=== PATIENT | female | born 2000 | race Caucasian/White ===

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

== ENCOUNTER 2022-05-25 16:07 | Emergency (ER) | payer OTHER ==
[2022-05-25 16:29] VITALS: BP 113/74; PULSE 66; RESP 16; TEMP 98.1
--- NOTE | 2022-05-25 16:40 | ED ---
General Adult HPI - General Chief complaint: Skin/Abscess/Foreign Body Stated complaint: Rash Time Seen by Provider: 05/25/22 16:30 Source: patient, RN notes reviewed, old records reviewed Mode of arrival: ambulatory Limitations: no limitations - History of Present Illness Initial comments: 22-year-old female with rash to her right forearm, left upper back, left hip. Patient's mother had requested evaluation for possible ringworm. Patient denies any associated symptoms. She is otherwise healthy. - Related Data Previous Rx's Medication Instructions Recorded Permethrin 5% Cream [Elimite] 1 applic TOPICAL ONCE #1 cream..g. 02/27/16 Amoxicillin 500 mg PO Q8H 7 Days #21 capsule 01/31/20 Clotrimazole Cream [Lotrimin Cream] 1 applic TOPICAL BID #15 gm 05/25/22 Allergies Allergy/AdvReac Type Severity Reaction Status Date / Time shellfish derived [Shellfish] Allergy Unknown Verified 05/25/22 16:28 Review of Systems ROS Statement: Those systems with pertinent positive or pertinent negative responses have been documented in the HPI. ROS Other: All systems not noted in ROS Statement are negative. Past Medical History Past Medical History: No Reported History Additional Past Medical History / Comment(s): SOCIAL ANXIETY History of Any Multi-Drug Resistant Organisms: None Reported Past Surgical History: No Surgical Hx Reported Past Psychological History: No Psychological Hx Reported Smoking Status: Never smoker Past Alcohol Use History: None Reported Past Drug Use History: None Reported General Exam Limitations: no limitations General appearance: alert, in no apparent distress Head exam: Present: atraumatic, normocephalic ENT exam: Present: normal exam Neck exam: Present: normal inspection. Absent: tenderness Respiratory exam: Present: normal lung sounds bilaterally. Absent: respiratory distress, wheezes Cardiovascular Exam: Present: regular rate, normal rhythm GI/Abdominal exam: Present: soft. Absent: distended, tenderness, guarding Psychiatric exam: Present: normal affect, normal mood Skin exam: Present: warm, rash (Tenia corporis of the right forearm, left upper back.) Course Vital Signs 05/25/22 16:26 Temperature 98.1 F Pulse Rate 66 Respiratory 16 Rate Blood Pressure 113/74 O2 Sat by Pulse 100 Oximetry Medical Decision Making - Medical Decision Making 22-year-old female with tinea corporis, started on antifungal cream should follow with her primary care physician. Disposition Clinical Impression: Ringworm of body Disposition: HOME SELF-CARE Condition: Good Instructions (If sedation given, give patient instructions): Tinea Corporis (ED) Prescriptions: Clotrimazole Cream [Lotrimin Cream] 1 applic TOPICAL BID #15 gm Is patient prescribed a controlled substance at d/c from ED?: No Referrals: None,Stated [Primary Care Provider] - 1-2 days Dennis Carvalho MD [REFERRING] - 1-2 days Time of Disposition: 16:37
== END 2022-05-25 17:24 | disposition home or self-care (01) ==
LOC: EC 16:07
DX: B35.4 Tinea corporis (principal); Z91.013 Allergy to seafood
CPT/HCPCS: 99282

== ENCOUNTER 2022-06-12 21:16 | Emergency (ER) | payer OTHER ==
[2022-06-12 21:19] VITALS: BP 131/77; PULSE 107; RESP 18; TEMP 98.3
--- NOTE | 2022-06-12 21:25 | ED ---
Skin/Abscess/FB HPI - General Chief complaint: Skin/Abscess/Foreign Body Stated complaint: 3 wasp stings Time Seen by Provider: 06/12/22 21:23 Source: patient, RN notes reviewed Mode of arrival: ambulatory Limitations: no limitations - History of Present Illness Initial comments: Patient is a pleasant 22-year-old -[place] female presents to the e mergency room at the direction of her mother after being stung by a wasp 3 times. She reports that her sister has ALLERGIC reactions to bees and wasps when her mother was concerned regarding her potential ALLERGIC response; she denies any personal known ALLERGIES to bees or wasps. She was stung approximately 20 minutes prior to her arrival to the emergency room. She was stung 3 times once to the right upper arm, once to the left middle finger and once to the left side of the back of her neck. She denies any difficulty in breathing, wheezing, flushing, fevers or chills. She is complaining of some pain and itching isolated to each bite. She reports seeing a wasp nest prior to being stung. she does not believe she was stung by a bee and is not concerned regarding the presence of a stinger still in any of her wounds. She has a past medical history significant for social anxiety; she is not on any medications on a regular basis. She denies any other complaints or concerns at this time. - Related Data Previous Rx's Medication Instructions Recorded Permethrin 5% Cream [Elimite] 1 applic TOPICAL ONCE #1 cream..g. 02/27/16 Amoxicillin 500 mg PO Q8H 7 Days #21 capsule 01/31/20 Clotrimazole Cream [Lotrimin Cream] 1 applic TOPICAL BID #15 gm 05/25/22 Clotrimazole Cream [Lotrimin Cream] 1 applic TOPICAL BID 14 Days #30 gm 06/03/22 Allergies Allergy/AdvReac Type Severity Reaction Status Date / Time shellfish derived [Shellfish] Allergy Unknown Verified 06/12/22 21:19 Review of Systems ROS Statement: Those systems with pertinent positive or pertinent negative responses have been documented in the HPI. ROS Other: All systems not noted in ROS Statement are negative. Past Medical History Past Medical History: No Reported History Additional Past Medical History / Comment(s): SOCIAL ANXIETY History of Any Multi-Drug Resistant Organisms: None Reported Past Surgical History: No Surgical Hx Reported Past Psychological History: Anxiety Smoking Status: Never smoker Past Alcohol Use History: None Reported Past Drug Use History: None Reported General Exam Limitations: no limitations Course Vital Signs 06/12/22 21:17 Temperature 98.3 F Pulse Rate 107 H Respiratory 18 Rate Blood Pressure 131/77 O2 Sat by Pulse 98 Oximetry Medical Decision Making - Medical Decision Making localized skin irritation noted to each site of known stinging however no respiratory distress or evidence of disseminated ALLERGIC response. No indication for any diagnostic imaging or laboratory studies at this time. Will give one-time dose of Solu-Medrol IM given multiple stings with 1 sting location in the neck along with up patient of topical hydrocortisone cream. will monitor after steroid injection and application of topical agent for worsening of localized response or advancement of systemic response. she responded well to Solu-Medrol without further worsening of her localized reaction to her stings or evidence of systemic response. No need for oral steroids. Advised if needed may use Benadryl [id number] at bedtime to help with itching. May also continue to use localized hydrocortisone cream as needed for itching. Discussed ALLERGIC response symptoms and when to seek immediate medical attention. Will discharge home. Case discussed with Dr. Faria. Disposition Clinical Impression: Allergic contact dermatitis due to other agents Disposition: HOME SELF-CARE Condition: Good Instructions (If sedation given, give patient instructions): Contact Dermatitis (ED), Insect Bite or Sting (ED) Additional Instructions: Please utilize steroid cream to help with itching as needed. May use Benadryl [id number] at bedtime if needed to help with symptoms. If any difficulty in breathing or worsening of skin lesions please return to the emergency room. Please return to the Emergency Department if symptoms worsen or any other concerns. Is patient prescribed a controlled substance at d/c from ED?: No Referrals: Sanya Paez MD [Primary Care Provider] - 1-2 days Time of Disposition: 22:24
[2022-06-12] MEDS ORDERED: methylPREDNISolone SOD SUCCI 125 MG/2 ML VIAL IM ONE (21:33)
[2022-06-12] MEDS ORDERED: TRIAMCINOLONE ACET 0.1% OINTMENT 15 GM TUBE TOPICAL ONE (21:45)
== END 2022-06-12 22:36 | disposition home or self-care (01) ==
LOC: EC 21:16
DX: L23.89 Allergic contact dermatitis due to other agents (principal); F41.9 Anxiety disorder, unspecified; Z91.013 Allergy to seafood
CPT/HCPCS: 99282; 96372; J2930

== ENCOUNTER 2023-02-16 10:46 | Emergency (ER) | payer OTHER ==
[2023-02-16 10:51] VITALS: BP 126/83; PULSE 76; RESP 18; TEMP 98.3
--- NOTE | 2023-02-16 11:43 | ED ---
General Adult HPI - General Chief complaint: Skin/Abscess/Foreign Body Stated complaint: rash Time Seen by Provider: 02/16/23 11:05 Source: patient, RN notes reviewed Mode of arrival: ambulatory Limitations: no limitations - History of Present Illness Initial comments: 22-year-old female who presents emergency Department with a chief complaint of skin problem. 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 She has never had this before and no other person this in the household. She denies any itchiness, dryness, discharge. She has not taken anything for the symptoms. She denies any new lotion, soaps, detergents. Denies personal history of ALLERGIES. - Related Data Previous Rx's Medication Instructions Recorded Clotrimazole Cream [Lotrimin Cream] 1 applic TOPICAL BID 14 Days #30 gm 06/03/22 Allergies Allergy/AdvReac Type Severity Reaction Status Date / Time shellfish derived [Shellfish] Allergy Unknown Verified 02/16/23 10:51 Review of Systems ROS Statement: Those systems with pertinent positive or pertinent negative responses have been documented in the HPI. ROS Other: All systems not noted in ROS Statement are negative. Past Medical History Past Medical History: No Reported History Additional Past Medical History / Comment(s): SOCIAL ANXIETY History of Any Multi-Drug Resistant Organisms: None Reported Past Surgical History: No Surgical Hx Reported Past Psychological History: Anxiety Smoking Status: Never smoker Past Alcohol Use History: None Reported Past Drug Use History: None Reported General Exam Limitations: no limitations General appearance: alert, in no apparent distress Head exam: Present: atraumatic, normocephalic, normal inspection Eye exam: Present: normal appearance, PERRL, EOMI. Absent: scleral icterus, conjunctival injection, periorbital swelling ENT exam: Present: normal exam, mucous membranes moist Neck exam: Present: normal inspection. Absent: tenderness, meningismus, lymphadenopathy Respiratory exam: Present: normal lung sounds bilaterally. Absent: respiratory distress, wheezes, rales, rhonchi, stridor Cardiovascular Exam: Present: regular rate, normal rhythm, normal heart sounds. Absent: systolic murmur, diastolic murmur, rubs, gallop, clicks GI/Abdominal exam: Present: soft, normal bowel sounds. Absent: distended, tenderness, guarding, rebound, rigid Extremities exam: Present: normal inspection, full ROM, normal capillary refill. Absent: tenderness, pedal edema, joint swelling, calf tenderness Back exam: Present: normal inspection Neurological exam: Present: alert, oriented X3, CN II-XII intact Psychiatric exam: Present: normal affect, normal mood Skin exam: Present: warm, dry, intact, normal color. Absent: rash Course Vital Signs 02/16/23 10:49 Temperature 98.3 F Pulse Rate 76 Respiratory 18 Rate Blood Pressure 126/83 O2 Sat by Pulse 99 Oximetry Medical Decision Making - Medical Decision Making Was pt. sent in by a medical professional or institution (, [facility], [employer], urgent care, hospital, or fpc...) When possible be specific @ -[No] Did you speak to anyone other than the patient for history (EMS, parent, family, police, friend...)? What history was obtained from this source @ -[No] Did you review nursing and triage notes (agree or disagree)? Why? @ -[I reviewed and agree with nursing and triage notes] Were old charts reviewed (outside hosp., previous admission, EMS record, old EKG, old radiological studies, urgent care reports/EKG's, fpc records)? Report findings @ -[No old charts were reviewed] Differential Diagnosis (chest pain, altered mental status, abdominal pain women, abdominal pain men, vaginal bleeding, weakness, fever, dyspnea, syncope, headache, dizziness, GI bleed, back pain, seizure, CVA, palpatations, mental health, musculoskeletal)? @ -[not applicable] EKG interpreted by me (3pts min.). @ -[As above] X-rays interpreted by me (1pt min.). @ -[None done] CT interpreted by me (1pt min.). @ -[None done] U/S interpreted by me (1pt. min.). @ -[None done] What testing was considered but not performed or refused? (CT, X-rays, U/S, labs)? Why? @ -[None] What meds were considered but not given or refused? Why? @ -[None] Did you discuss the management of the patient with other professionals (professionals i.e. [facility] Mahoney, [employer]IN [employer]ER, lab, RT, psych nurse, social services analyst, tax lawyer, teacher, examining officer, machine adjuster leader case trim)? Give summary @ -[No] Was smoking cessation discussed for >3mins.? @ -[No] Was critical care preformed (if so, how long)? @ -[No] Were there social determinants of health that impacted care today? How? (Homelessness, low income, unemployed, alcoholism, drug addiction, transportation, low edu. Level, literacy, decrease access to med. care, alf, rehab)? @ -[No] Was there de-escalation of care discussed even if they declined (Discuss DNR or withdrawal of care, Hospice)? DNR status @ -[No] What co-morbidities impacted this encounter? (DM, HTN, Smoking, COPD, CAD, Cancer, CVA, ARF, Chemo, Hep., AIDS, mental health diagnosis, sleep apnea, morbid obesity)? @ -[None] Was patient admitted / discharged? Hospital course, mention meds given and route, prescriptions, significant lab abnormalities, going to OR and other pertinent info. @ -Discharged. This is a 22-year-old female who presents to the emergency department with rash. Patient had a thorough history and physical exam performed on the ED. Physical exam is essentially unremarkable. Heart rate regular rate and rhythm, lungs clear to auscultation bilaterally abdomen is soft and non-tender. no rash noted. . I discussed the results in detail with the patient verbalized understanding and all questions were addressed. Return precautions were discussed at length. The patient was discharged in stable c ondition. Case discussed with FRANCISCO Ortez who agrees with plan of care Undiagnosed new problem with uncertain prognosis? @ -[No] Drug Therapy requiring intensive monitoring for toxicity (Heparin, Nitro, Insulin, Cardizem)? @ -[No] Were any procedures done? @ -[No] Diagnosis/symptom? @ -skin problem Acute, or Chronic, or Acute on Chronic? @ -acute Uncomplicated (withoutsystemic symptoms) or Complicated (systemic symptoms)? @ -uncomplicated Side effects of treatment? @ -[No] Exacerbation, Progression, or Severe Exacerbation? @ -[No] Poses a threat to life or bodily function? How? (Chest pain, [place], OR, pneumonia, PE, COPD, DKA, ARF, appy, cholecystitis, CVA, Diverticulitis, Homicidal, Suicidal, threat to staff... and all critical care pts) @ -low likelihood Disposition Clinical Impression: Discolored skin Disposition: HOME SELF-CARE Condition: Stable Additional Instructions: These return to the nearest emergency department if symptoms worsen or persist. Is patient prescribed a controlled substance at d/c from ED?: No Referrals: None,Stated [Primary Care Provider] - 1-2 days Jose Gentile MD [STAFF PHYSICIAN] - 1-2 days Time of Disposition: 11:42
== END 2023-02-16 12:03 | disposition home or self-care (01) ==
LOC: EC 10:46
DX: L81.9 Disorder of pigmentation, unspecified (principal); F41.9 Anxiety disorder, unspecified; Z91.013 Allergy to seafood
CPT/HCPCS: 99282

== ENCOUNTER 2023-07-24 19:07 | Emergency (ER) | payer OTHER ==
[2023-07-24 19:37] VITALS: RESP 18; TEMP 96.9
--- NOTE | 2023-07-24 20:12 | ED ---
General Adult HPI - General Chief complaint: ENT Stated complaint: right ear pain Time Seen by Provider: 07/24/23 19:43 Source: patient, RN notes reviewed Mode of arrival: ambulatory Limitations: no limitations - History of Present Illness Initial comments: Patient is a pleasant 23-year-old female presenting to emergency department with concerns for right ear pain. Onset of symptoms was a couple days ago. Patient states he feels full and muffled. Patient states there has been some drainage. Patient states this is causing a mild headache. - Related Data Previous Rx's Medication Instructions Recorded Clotrimazole Cream [Lotrimin Cream] 1 applic TOPICAL BID 14 Days #30 gm 06/03/22 Amoxicillin 500 mg PO Q8H #21 capsule 07/24/23 Loratadine [Claritin] 10 mg PO DAILY #30 tab 07/24/23 Allergies Allergy/AdvReac Type Severity Reaction Status Date / Time shellfish derived [Shellfish] Allergy Unknown Verified 07/24/23 19:36 Review of Systems ROS Statement: Those systems with pertinent positive or pertinent negative responses have been documented in the HPI. ROS Other: All systems not noted in ROS Statement are negative. Constitutional: Denies: fever Eyes: Denies: eye pain ENT: Reports: as per HPI, ear pain Respiratory: Denies: cough Cardiovascular: Denies: chest pain Past Medical History Past Medical History: No Reported History Additional Past Medical History / Comment(s): SOCIAL ANXIETY History of Any Multi-Drug Resistant Organisms: None Reported Past Surgical History: No Surgical Hx Reported Past Psychological History: Anxiety Smoking Status: Never smoker Past Alcohol Use History: None Reported Past Drug Use History: None Reported General Exam Limitations: no limitations General appearance: alert, in no apparent distress Head exam: Present: normocephalic Eye exam: Present: normal appearance ENT exam: Present: normal oropharynx, other (Right TM does appear to have some fluid behind it. Mild erythema) Neck exam: Present: normal inspection. Absent: lymphadenopathy Respiratory exam: Present: normal lung sounds bilaterally Cardiovascular Exam: Present: regular rate, normal rhythm GI/Abdominal exam: Present: soft. Absent: tenderness Extremities exam: Present: normal inspection Course Vital Signs 07/24/23 19:34 Temperature 96.9 F L Pulse Rate 87 Respiratory 18 Rate Blood Pressure 130/79 O2 Sat by Pulse 100 Oximetry Medical Decision Making - Medical Decision Making Was pt. sent in by a medical professional or institution (GUILLERMO Mahoney, T[employer]PENSER CHANGER, urgent care, hospital, or long term...) When possible be specific @ -No Did you speak to anyone other than the patient for history (EMS, parent, family, police, friend...)? What history was obtained from this source @ -No Did you review nursing and triage notes (agree or disagree)? Why? @ -I reviewed and agree with nursing and triage notes Were old charts reviewed (outside hosp., previous admission, EMS record, old EKG, old radiological studies, urgent care reports/EKG's, long term records)? Report findings @ -No old charts were reviewed Differential Diagnosis (chest pain, altered mental status, abdominal pain women, abdominal pain men, vaginal bleeding, weakness, fever, dyspnea, syncope, headache, dizziness, GI bleed, back pain, seizure, CVA, palpatations, mental health, musculoskeletal)? @ -Differential Fever: Pneumonia, viral URI, endocarditis, myocarditis, pericarditis, otitis, sinusitis, peritonsillar Abscess, retropharyngeal Abscess, epiglottitis, peritonitis, appendicitis, Tena cystitis, diverticulitis, hepatitis, colitis, UTI, PID, TOA, pyelonephritis, prostatitis, epididymitis, meningitis, encephalitis, pulmonary embolism, CVA, thyroid storm, pancreatitis, adrenal crisis, cavernous sinus thrombosis, this is not meant to be an all-inclusive list. EKG interpreted by me (3pts min.). @ -As above X-rays interpreted by me (1pt min.). @ -None done CT interpreted by me (1pt min.). @ -None done U/S interpreted by me (1pt. min.). @ -None done What testing was considered but not performed or refused? (CT, X-rays, U/S, labs)? Why? @ -None What meds were considered but not given or refused? Why? @ -None Did you discuss the management of the patient with other professionals (professionals i.e. GUILLERMO Mahoney, T[employer]ER CHANGER, lab, RT, psych nurse, director social service, business objects developer, teacher, medical officer psychiatry, immigration case manager)? Give summary @ -No Was smoking cessation discussed for >3mins.? @ -No Was critical care preformed (if so, how long)? @ -No Were there social determinants of health that impacted care today? How? (Homelessness, low income, unemployed, alcoholism, drug addiction, transportation, low edu. Level, literacy, decrease access to med. care, alf, rehab)? @ -No Was there de-escalation of care discussed even if they declined (Discuss DNR or withdrawal of care, Hospice)? DNR status @ -No What co-morbidities impacted this encounter? (DM, HTN, Smoking, COPD, CAD, Cancer, CVA, ARF, Chemo, Hep., AIDS, mental health diagnosis, sleep apnea, morbid obesity)? @ -None Was patient admitted / discharged? Hospital course, mention meds given and route, prescriptions, significant lab abnormalities, going to OR and other pertinent info. @ -Patient updated on results and plan. Undiagnosed new problem with uncertain prognosis? @ -No Drug Therapy requiring intensive monitoring for toxicity (Heparin, Nitro, Insulin, Cardizem)? @ -No Were any procedures done? @ -No Diagnosis/symptom? @ -Otalgia Acute, or Chronic, or Acute on Chronic? @ -Acute Uncomplicated (without systemic symptoms) or Complicated (systemic symptoms)? @ -default Side effects of treatment? @ -No Exacerbation, Progression, or Severe Exacerbation? @ -No Poses a threat to life or bodily function? How? (Chest pain, [place], [place], pneumonia, PE, COPD, DKA, ARF, appy, cholecystitis, CVA, Diverticulitis, Homicidal, Suicidal, threat to staff... and all critical care pts) @ -No Disposition Clinical Impression: Otalgia Disposition: HOME SELF-CARE Condition: Stable Instructions (If sedation given, give patient instructions): Earache (ED) Additional Instructions: Prescription sent to pharmacy. Please do follow-up with primary care physician in the next day or 2 for recheck. Return for hearing loss, increased pain, fevers, worsening symptoms or other concerns. Prescriptions: Amoxicillin 500 mg PO Q8H #21 capsule Loratadine [Claritin] 10 mg PO DAILY #30 tab Is patient prescribed a controlled substance at d/c from ED?: No Referrals: Yanick Bal MD [Primary Care Provider] - 1-2 days Time of Disposition: 20:11
[2023-07-24 20:18] VITALS: BP 112/69; PULSE 83
== END 2023-07-24 20:18 | disposition home or self-care (01) ==
LOC: EC 19:07
DX: H92.01 Otalgia, right ear (principal); Z91.013 Allergy to seafood; Z86.59 Personal history of other mental and behavioral disorders
CPT/HCPCS: 99282